=== PATIENT | female | born 1975 | race African-American/Black ===

== ENCOUNTER 2019-09-10 10:19 | Emergency (ER) | payer MEDICAID ==
[~2019-09-10] VITALS: Ht 167.6 cm; Wt 129.3 kg
--- NOTE | 2019-09-10 10:32 | NUR ---
Dr. Pan at the bedside for MSE.
[2019-09-10] MEDS ORDERED: MAG HYDROX/AL HYDROX/SIMETH 30 ML LIQUID UDC PO ONE (10:45)
[2019-09-10] MEDS ORDERED: ONDANSETRON ODT 4 MG TAB.RAPDIS SL ONE (10:45)
[2019-09-10] MEDS ORDERED: LIDOCAINE VISCUS 2% 15 ML UDC MM ONE (10:45)
[2019-09-10] MEDS ORDERED: KETOROLAC TROMETHAMINE 30 MG INJ IM ONE (10:45)
[2019-09-10] MEDS ORDERED: KETOROLAC TROMETHAMINE 30 MG INJ ONE (10:46)
[2019-09-10] MEDS ORDERED: MAG HYDROX/AL HYDROX/SIMETH 30 ML LIQUID UDC ONE (10:47)
[2019-09-10] MEDS ORDERED: LIDOCAINE VISCUS 2% 15 ML UDC ONE (10:47)
[2019-09-10] MEDS ORDERED: ONDANSETRON ODT 4 MG TAB.RAPDIS ONE (10:48)
[2019-09-10 11:02] LABS: BASOPHILS # (AUTO) 0.1 K/uL (0.0-8.0); BASOPHILS % (AUTO) 0.9 % (0.0-2.0); EOSINOPHILS # (AUTO) 0.1 K/uL (0.0-0.7); EOSINOPHILS % (AUTO) 1.1 % (0.0-7.0); HEMATOCRIT 34.4 % (31.2-41.9); HEMOGLOBIN 11.7 g/dL (10.9-14.3); LYMPHOCYTES # (AUTO) 3.3 K/uL (20.0-40.0); LYMPHOCYTES % (AUTO) 37.5 % (20.5-51.5); MEAN CORPUSCULAR HEMOGLOBIN 27.1 uug (24.7-32.8); MEAN CORPUSCULAR HGB CONC 34 g/dL (32.3-35.6); MEAN CORPUSCULAR VOLUME 79.4 fL (75.5-95.3); MONOCYTES # (AUTO) 0.4 K/uL (2.0-10.0); MONOCYTES % (AUTO) 4.8 % (0.0-11.0); NEUTROPHILS % (AUTO) 55.7 % (38.5-71.5); PLATELET COUNT (AUTO) 309 K/uL (179-408); RED BLOOD CELL COUNT(AUTO) 4.33 MIL/uL (3.63-4.92); WHITE BLOOD COUNT (AUTO) 8.9 K/uL (3.8-11.8)
[2019-09-10 11:10] LABS: CREATININE 0.8 mg/dL (0.6-1.3); POTASSIUM 4.3 mmol/L (3.5-5.1)
[2019-09-10] MEDS ORDERED: IV NORMAL SALINE 1000 ML BAG IV ONE (11:15)
[2019-09-10 11:18] LABS: BILIRUBIN,DIRECT 0.1 mg/dL (0.0-0.2); BILIRUBIN,TOTAL 0.5 mg/dL (0.2-1.0); TOTAL PROTEIN, SERUM 7.2 g/dL (6.4-8.2)
[2019-09-10] MEDS ORDERED: INSULIN GLARGINE SUBCUT (11:19)
[2019-09-10] MEDS ORDERED: EMPA25TA PO (11:19)
[2019-09-10] MEDS ORDERED: IOHEXOL 300MG/ML 100 ML INFUS..BTL ONE ×2 (11:19→13:13)
[2019-09-10] MEDS ORDERED: IV NORMAL SALINE 250 ML IV ONE (11:19)
[2019-09-10] MEDS ORDERED: SEMA1PEN SQ (11:19)
[2019-09-10] MEDS ORDERED: SWABABLE VALVE TRANSFER SET EA MC ONE (11:19)
[2019-09-10] MEDS ORDERED: INSU100C SUBCUT (11:19)
[2019-09-10] MEDS ORDERED: PANT40TA2 PO (11:19)
[2019-09-10] MEDS ORDERED: ACETAMINOPHEN ES 500 MG TABLET ONE (11:59)
[2019-09-10] MEDS ORDERED: ACETAMINOPHEN ES 500 MG TABLET PO ONE (12:00)
[2019-09-10 12:41] LABS: *BILIRUBIN,URIN NEGATIVE (NEGATIVE); *BLOOD, URINE NEGATIVE (NEGATIVE); *CLARITY,URINE CLOUDY (CLEAR); *COLOR,URINE YELLOW (YELLOW); *KETONES,URINE TRACE (NEGATIVE); *UROBILINOGEN,URINE 0.2 E.U./dl (NORMAL); LEUKOCYTE ESTERASE ,URINE NEGATIVE (NEGATIVE); NITRITE, URINE NEGATIVE (NEGATIVE); PH,URINE 5.5 (5.0-8.0)
[2019-09-10 12:43] LABS: UGLUCOSE 2+ (NEGATIVE)
[2019-09-10 12:48] LABS: *URINE HCG, QUAL NEGATIVE (NEGATIVE)
[2019-09-10 12:56] LABS: RBC,URINE 0-3 /HPF (0-3); YEAST,URINE MODERATE /HPF (NONE SEEN)
--- NOTE | 2019-09-10 13:28 | NUR ---
Pt returned from CT with radiologist.
--- NOTE | 2019-09-10 14:10 | NUR ---
Patient discharged to home in stable conditon. Written and verbal after care instructions given. Patient verbalizes understanding of instructions.
== END 2019-09-10 14:10 | disposition home or self-care (01) ==
LOC: ER 10:19
DX: R10.12 Left upper quadrant pain (principal); R10.32 Left lower quadrant pain; R19.7 Diarrhea, unspecified; R11.2 Nausea with vomiting, unspecified; E11.9 Type 2 diabetes mellitus without complications; Z88.1 Allergy status to other antibiotic agents; Z79.899 Other long term (current) drug therapy; Z79.1 Long term (current) use of non-steroidal anti-inflammatories (NSAID)
CPT/HCPCS: 36415; 74177; 80048; 80076; 81000; 81001; 83690; 84703; 85025; 87086; 96360; 96372; 99285; J1885; Q9967; A4663; A9150; J7030; J7050; Q0162